=== PATIENT | female | born 1935 | race Caucasian/White ===

== ENCOUNTER 2018-09-10 22:05 | Observation (INO) | payer MEDICARE, MEDICAID ==
[2018-09-10 23:37] LABS: ADD MAN DIFF? NO
[2018-09-10 23:40] LABS: BASOPHIL # 0.1 10^3/ul (0.0-0.1); BASOPHILS % 0.7 % (0.0-2.0); EOSINOPHILS # 0.1 10^3/ul (0.0-0.5); EOSINOPHILS % 2.1 % (0.0-7.0); HEMATOCRIT 40.8 % (37.0-47.0); HEMOGLOBIN 13.3 g/dl (12.0-16.0); LYMPHOCYTES # 1.7 10^3/ul (0.8-2.9); LYMPHOCYTES % 25.7 % (15.0-51.0); MEAN CORPUSCULAR HEMOGLOBIN 30.7 pg (29.0-33.0); MEAN CORPUSCULAR HGB CONC 32.6 g/dl (32.0-37.0); MEAN CORPUSCULAR VOLUME 94.2 fl (82.0-101.0); MEAN PLATELET VOLUME 11.5 fl (7.4-10.4); MONOCYTE # 0.5 10^3/ul (0.3-0.9); MONOCYTES % 7.4 % (0.0-11.0); NEUTROPHIL # 4.3 10^3/ul (1.6-7.5); NEUTROPHILS % 63.8 % (39.0-77.0); PLATELET COUNT 169 10^3/UL (140-415); RED BLOOD COUNT 4.33 10^6/ul (4.20-5.40)
[2018-09-10 23:40] LABS: WHITE BLOOD COUNT 6.7 10^3/ul (4.8-10.8)
[2018-09-10] MEDS: SOD CHLORIDE 0.9% 500 ML IV (23:40)
[2018-09-10] MEDS: MECLIZINE 12.5 MG TAB PO (23:40)
[2018-09-10 23:53] LABS: ADD UMIC YES; UR ASCORBIC ACID NEGATIVE (NEGATIVE); UR BILIRUBIN (Dip) NEGATIVE (NEGATIVE); UR BLOOD (Dip) 1+ mg/dL (NEGATIVE); UR CLARITY CLEAR (CLEAR); UR COLOR STRAW (YELLOW); UR GLUCOSE (Dip) NEGATIVE (NEGATIVE); UR KETONES (Dip) NEGATIVE (NEGATIVE); UR LEUKOCYTE ESTERASE (Dip) TRACE Leu/ul (NEGATIVE); UR MUCUS FEW /HPF (NONE SEEN); UR NITRITE (Dip) NEGATIVE (NEGATIVE); UR RBC 2 /HPF (0-5); UR SPECIFIC GRAVITY (Dip) 1.012 (1.003-1.030); UR SQUAMOUS EPITHELIAL CELL FEW /HPF (FEW); UR TOTAL PROTEIN (Dip) NEGATIVE (NEGATIVE); UR UROBILINOGEN (Dip) NEGATIVE (NEGATIVE); UR WBC 4 /HPF (0-5)
[2018-09-10 23:57] LABS: ALANINE AMINOTRANSFERASE 23 IU/L (13-69); ALBUMIN 4.4 g/dl (3.3-4.9); ALBUMIN/GLOBULIN RATIO 1.57; ALKALINE PHOSPHATASE 86 IU/L (42-121); ANION GAP 8 (5-13); ASPARTATE AMINO TRANSFERASE 22 IU/L (15-46); BILIRUBIN,INDIRECT 0.5 mg/dl (0-1.1); BILIRUBIN,TOTAL 0.5 mg/dl (0.2-1.3); BLOOD UREA NITROGEN 20 mg/dl (7-20); CALCIUM 9.5 mg/dl (8.4-10.2); CARBON DIOXIDE 30 mmol/L (21-31); CHLORIDE 102 mmol/L (97-110); CREATININE 0.55 mg/dl (0.44-1.00); GLUCOSE 123 mg/dl (70-220); LIPASE 108 U/L (23-300); POTASSIUM 3.7 mmol/L (3.5-5.1); SODIUM 140 mmol/L (135-144); TOTAL PROTEIN 7.2 g/dl (6.1-8.1)
[2018-09-11 00:08] LABS: TROPONIN-I < 0.012 ng/ml (0.000-0.120)
[2018-09-11] MEDS ORDERED: BISACODYL (EC) 5 MG TAB PO (03:30)
[2018-09-11] MEDS ORDERED: ONDANSETRON 4 MG INJ IV (03:30)
[2018-09-11] MEDS ORDERED: DOCUSATE SODIUM 100 MG CAP PO (03:30)
[2018-09-11] MEDS ORDERED: NACL 0.9% 3 ML SYG IV (03:30)
[2018-09-11] MEDS ORDERED: ACETAMINOPHEN 325 MG TAB PO (03:30)
[2018-09-11] MEDS: hydrALAzine 20 MG INJ IV ×2 (04:30→08:30)
[2018-09-11] MEDS: ACETAMINOPHEN 325 MG TAB PO (08:36)
[2018-09-11] MEDS: ONDANSETRON 4 MG INJ IV (09:33)
[2018-09-11] MEDS: MECLIZINE 12.5 MG TAB PO ×3 (10:27→21:35)
[2018-09-11] MEDS: AMOXICILLIN/CLAV 875 MG TAB PO ×2 (14:32→23:05)
[2018-09-11] MEDS: SALINE 0.65% 45 ML NAS SPRAY NASAL ×2 (14:35→21:35)
[2018-09-12 05:17] LABS: ADD MAN DIFF? NO
[2018-09-12 05:20] LABS: BASOPHIL # 0.1 10^3/ul (0.0-0.1); BASOPHILS % 0.6 % (0.0-2.0); EOSINOPHILS # 0.1 10^3/ul (0.0-0.5); EOSINOPHILS % 0.9 % (0.0-7.0); HEMATOCRIT 40.9 % (37.0-47.0); HEMOGLOBIN 13.5 g/dl (12.0-16.0); LYMPHOCYTES # 1.4 10^3/ul (0.8-2.9); LYMPHOCYTES % 17.5 % (15.0-51.0); MEAN CORPUSCULAR HEMOGLOBIN 30.6 pg (29.0-33.0); MEAN CORPUSCULAR VOLUME 92.7 fl (82.0-101.0); MEAN PLATELET VOLUME 11.8 fl (7.4-10.4); MONOCYTE # 0.6 10^3/ul (0.3-0.9); MONOCYTES % 6.7 % (0.0-11.0); NEUTROPHIL # 6.1 10^3/ul (1.6-7.5); NEUTROPHILS % 74.1 % (39.0-77.0); PLATELET COUNT 162 10^3/UL (140-415); RED BLOOD COUNT 4.41 10^6/ul (4.20-5.40); RED CELL DISTRIBUTION WIDTH 14.5 % (11.5-14.5)
[2018-09-12 05:20] LABS: WHITE BLOOD COUNT 8.2 10^3/ul (4.8-10.8)
[2018-09-12 05:52] LABS: ALANINE AMINOTRANSFERASE 21 IU/L (13-69); ALBUMIN 3.9 g/dl (3.3-4.9); ALBUMIN/GLOBULIN RATIO 1.21; ALKALINE PHOSPHATASE 70 IU/L (42-121); ANION GAP 11 (5-13); ASPARTATE AMINO TRANSFERASE 23 IU/L (15-46); BILIRUBIN,INDIRECT 0.9 mg/dl (0-1.1); BILIRUBIN,TOTAL 0.9 mg/dl (0.2-1.3); BLOOD UREA NITROGEN 25 mg/dl (7-20); CALCIUM 9.3 mg/dl (8.4-10.2); CARBON DIOXIDE 28 mmol/L (21-31); CHLORIDE 100 mmol/L (97-110); CHOL/HDL RATIO 4.5 RATIO; CHOLESTEROL 163 mg/dl (100-200); CREATININE 0.73 mg/dl (0.44-1.00); GLUCOSE 123 mg/dl (70-220); HDL CHOLESTEROL 36 mg/dl (33-92); LDL CHOLESTEROL,CALCULATED 88 mg/dl; MAGNESIUM 2.4 mg/dl (1.7-2.5); POTASSIUM 3.6 mmol/L (3.5-5.1); SODIUM 139 mmol/L (135-144); TOTAL PROTEIN 7.1 g/dl (6.1-8.1); TRIGLYCERIDES 194 mg/dl (0-149)
[2018-09-12] MEDS: MECLIZINE 12.5 MG TAB PO ×2 (08:53→12:41)
[2018-09-12] MEDS: SALINE 0.65% 45 ML NAS SPRAY NASAL (08:53)
[2018-09-12] MEDS: AMOXICILLIN/CLAV 875 MG TAB PO (08:53)
== END 2018-09-12 13:45 | disposition home or self-care (01) ==
LOC: E/R 22:05 → PP2 09-11 03:02
PROVIDERS: Family Medicine
DX: R42 Dizziness and giddiness (principal); J01.90 Acute sinusitis, unspecified; E78.5 Hyperlipidemia, unspecified; E78.00 Pure hypercholesterolemia, unspecified
CPT/HCPCS: 36415; 70450; 70551; 71045; 80053; 80061; 81001; 82962; 83036; 83690; 83735; 84443; 84484; 85025; 93005; 96360; 99285-25; G0378